=== PATIENT | female | born 1955 | race Caucasian/White ===

== ENCOUNTER 2023-08-18 08:22 | Inpatient (IN) | payer MEDICARE, SELFPAY ==
[2023-08-18] VITALS (16 sets, daily range): BP systolic 111–175; BP diastolic 38–98; PULSE 100–143; RESP 16–28; TEMP 36.2–39.5; O2SAT 92–99
--- NOTE | ~2023-08-18 | US_ITS ---
Duplex Sonography of the bilateral lower extremities: Indication: Swelling Sagittal and transverse B-mode images as well as color-flow imaging were performed on the right and l eft femoral and popliteal veins. B-mode examination was done without and with compression in the tra nsverse plane. There is good visualization of the bilateral common femoral, proximal profunda femora l, superficial femoral, greater saphenous, and popliteal veins. Normal flow was seen on color-flow im aging. Normal compressibility was demonstrated. Visualized calf veins are also patent. Impression: No evidence of deep vein thrombosis involving either lower extremity. Reviewed, dictated and finalized at location M. Impression: No evidence of deep vein thrombosis involving either lower extremit y.
--- NOTE | ~2023-08-18 | XR_ITS ---
EXAMINATION: XR chest 2V DATE: 08/18/2023 09:27 INDICATION: Shortness of breath. Cough. TECHNIQUE: Frontal and lateral views of the chest were obtained. COMPARISON: None. FINDINGS: There is a moderate-sized left pleural effusion. There is mild scarring at the lung apices. There are airspace opacities at left lung base. No pneumothorax. The heart size is normal. There is mild chronic anterior wedging of multiple vertebral bodies. IMPRESSION: 1. Moderate-sized left pleural effusion. 2. Airspace opacities at left lung base, consistent with atelectasis versus pneumonia. Reviewed, dictated and finalized at location A. IMPRESSION: 1. Moderate-sized left pleural effusion. 2. Airspace opacities at left lung base, consistent with atelectasis versus pne umonia.
--- NOTE | ~2023-08-18 | XR_ITS ---
EXAMINATION: XR chest LT decubitus Exam Date/Time: 08/18/2023 18:54 CDT HISTORY: left pleural effusion Comparison: Same date at 9:24 AM. RESULT: Lines, tubes, and devices: None. Lungs and pleura: Segmental left lower lobe consolidation. Cardiomediastinal silhouette: Stable. Other: No acute osseous or upper abdominal finding. IMPRESSION: Segmental left lower lobe consolidation suspicious for pneumonia. No layering effusion detected. Reviewed, dictated and finalized at location K. IMPRESSION: Segmental left lower lobe consolidation suspicious for pneumonia. No layering e ffusion detected.
--- NOTE | ~2023-08-18 | CT_ITS ---
Clinical Indication: Pneumonia, tachycardia CT Scan of the Chest with Contrast: Technique: Contiguous sections were acquired throughout the chest after intravenous administration of 100 cc of Omnipaque 350. Dose reduction technique was used on this scan by utilizing automated expos ure control and iterative reconstruction technique. The dose-length product (DLP) was 369.57 mGy-cm. Findings: There is no evidence of any significant mediastinal, hilar or axillary lymphadenopathy. There is no f illing defect in the pulmonary arterial tree to suggest pulmonary embolus. There is no evidence of ao rtic dissection or aneurysm. Right lung clear. No right pleural effusion. No pericardial effusion. There is extensive left lower lobe pneumonia, somewhat sparing the superior segment. Small left pleur al effusion present. Images through the upper abdomen reveal no abnormalities. Chronic T10 compression fracture present. Impression: Extensive left lower lobar pneumonia. Small left pleural effusion. Chronic T11 compression deformity. Reviewed, dictated and finalized at [facility]. Impression: Extensive left lower lobar pneumonia. Small left pleural effusion. Chronic T11 compression deformity.
--- NOTE | 2023-08-18 08:29 | ECG_ITS ---
Measurements Intervals [place] Rate: 131 P: 61 IA: 116 QRS: 44 QRSD: 102 T: 57 QT: 292 QTc: 431 Interpretive Statements SINUS TACHYCARDIA WITH SHORT IA INTERVAL ABNORMAL RHYTHM ECG NO PREVIOUS ECG AVAILABLE FOR COMPARISON Electronically Signed On 08-18-2023 13:08:58 CDT by Raffi Valerio M.D.
[2023-08-18] MEDS: ACETAMINOPHEN 500 MG TABLET 1000 MG PO (08:43)
[2023-08-18 08:49] LABS: Basophils Absolute Auto 0.1 K/mm3 (0.0-0.1); Basophils Percent Auto 0.7 % (0.2-1.2); Eosinophils Absolute Auto 0.1 K/mm3 (0-0.3); Eosinophils Percent Auto 0.3 % (0-4.4); Hematocrit 39.2 % (37.0-47.0); Hemoglobin 13.3 g/dL (12.0-15.0); Immature Granulocyte Absolute 0.14 K/mm3 (0.00-0.031); Immature Granulocyte Percent A 0.9 % (0-0.5); Lymphocytes Absolute Auto 0.52 K/mm3 (0.9-3.2); Lymphocytes Percent Auto 3.5 % (18.3-44.2); Mean Corpuscular HGB Conc 33.9 g/dl (32-36); Mean Corpuscular Hemoglobin 32.4 pg (26-34); Mean Corpuscular Volume 95.4 fl (80-100); Mean Platelet Volume 10.9 fl (7.4-10.4); Monocytes Absolute Auto 0.3 K/mm3 (0.1-0.6); Monocytes Percent Auto 1.7 % (2.6-8.5); Neutrophils Absolute Auto 13.8 K/mm3 (1.3-6.7); Neutrophils Percent Auto 92.9 % (45.5-73.1); Platelet Count Result 176 k/mm3 (150-375); Red Blood Count 4.11 M/mm3 (4.2-5.4); Red Cell Distribution Width 12.4 % (11.5-14.5); White Blood Count 14.9 K/mm3 (4.5-10.0)
[2023-08-18 08:58] LABS: INR 1.8; Prothrombin Time 22.1 Seconds (11.1-14.7)
[2023-08-18 08:59] LABS: Partial Thromboplastin Time 35.9 Seconds (22.3-36.8)
[2023-08-18 09:02] LABS: Lactic Acid Reflex 1.5 mmol/L (0.7-2.0)
[2023-08-18 09:04] LABS: Alanine Aminotransferase 51 U/L (6-35); Albumin Level 3.6 g/dL (3.5-5.1); Alkaline Phosphatase 67 U/L (38-126); Anion Gap 9 mmol/L (4-12); Aspartate Amino Transferase 49 U/L (14-36); Blood Urea Nitrogen 12 mg/dL (7-17); Calcium 9.6 mg/dL (8.4-10.2); Carbon Dioxide 19 mmol/L (22-30); Chloride 102 mmol/L (98-107); Estimated CRCL calculation 87 ml/min; Estimated Glomerular Filt Rate > 60; Glucose 134 mg/dL (65-110); Potassium 4.1 mmol/L (3.4-5.0); Sodium 130 mmol/L (137-145)
[2023-08-18 09:22] LABS: Appearance Urine Clear (Clear); Bacteria Urine None Seen /hpf; Bilirubin Urine Negative (Negative); Blood Urine 3+ (Negative); Color Urine Dark Yellow (Yellow); Glucose Urine UA Negative (Negative); Ketones Urine 2+ mg/dL (Negative); Leukocyte Esterase Ur Negative LEU/UL (Negative); Need Manual Microscopic Reviewed; Nitrate Urine Negative (Negative); Protein Urine 3+ mg/dL (Negative); Specific Grav Ur 1.022 (1.001-1.035); Squamous Epithelial Cell Urine Occasional /hpf (Few); WBC Urine 0-5 /hpf (0-3)
[2023-08-18 09:23] LABS: Add Urine Microscopic? YES
[2023-08-18 09:24] LABS: Influenza A QL RT-PCR Negative (Negative); Influenza B QL RT-PCR Negative (Negative); RSV RNA, RT-PCR Negative (Negative); SARS-CoV-2 RNA PCR Negative (Negative)
--- NOTE | 2023-08-18 09:50 | ED.SOB ---
HPI - SOB/Dyspnea General Chief Complaint: Shortness of Breath/Dyspnea Stated Complaint: dyspnea Time Seen by Provider: 08/18/23 08:29 Source: patient Mode of arrival: ambulatory Limitations: no limitations History of Present Illness HPI Narrative: 68-year-old with history of hypertension here with a complaint of shortness of breath, fever occasional cough for past 3 days. She denies any nausea, vomiting or abdominal pain. MD elicited complaint: shortness of breath and cough Onset (ago): day(s) (3) Timing: constant Severity: moderate Exacerbating factors: nothing Relieving factors: oxygen Associated symptoms: fever Treatment prior to arrival: none Related Data Home oxygen amount: none Allergies Allergy/AdvReac Type Severity Reaction Status Date / Time No Known Allergies Allergy Verified 08/18/23 08:49 Review of Systems Review of Systems: All systems reviewed & are unremarkable except as noted in HPI and below Constitutional: Constitutional: Reports as per HPI Eyes: Eyes: Reports no additional eye complaints ENT: Reports system reviewed and no additional complaints, except as documented Cardiovascular: Cardiovascular: Reports no additional cardiovascular complaints Respiratory: Respiratory: Reports as per HPI Gastrointestinal: Gastrointestinal: Reports no additional gastrointestinal complaints Musculoskeletal: Musculoskeletal: Reports no additional musculoskeletal complaints Integumentary/Breasts: Skin/Breast: Reports system reviewed and no additional complaints, except as docu Neurologic: Reports system reviewed and no additional complaints, except as documented Exam Narrative: GENERAL: Well-appearing, well-nourished, and in no acute distress. Febrile HEAD: Normocephalic, atraumatic. EYES: PERRLA and EOMI. ENT: Nares clear, no rhinorrhea or epistaxis. Mucous membranes moist. NECK: Supple. CHEST: Clear to auscultation. No respiratory distress. Tachypnea HEART: Tachycardic. No murmur heard. Normal peripheral pulses. ABDOMEN: Soft, nontender, nondistended, normal active bowel sounds. EXTREMITIES: Normal range of motion. No edema. SKIN: Warm, dry, no rash. NEURO: No focal deficits. Alert and oriented x3. PSYCH: Normal mood and affect. Course Course Emergency Course: Patient was febrile upon arrival new given Tylenol, she was also tachypneic with placed on 2 L nasal cannula SpO2 is 95% I would hydrate is variable which is down to 110s to 125. I did inform her about the lab work, EKG and chest x-ray findings were agreeable with admission. She does have left lower lobe pneumonia with effusion. Discussed with the hospitalist accepted the patient Vital Signs Vital signs: Vital Signs Temperature 39.5 C H 08/18/23 08:16 Pulse Rate 134 H 08/18/23 08:16 Respiratory Rate 28 H 08/18/23 08:16 Blood Pressure 175/69 H 08/18/23 08:16 Pulse Oximetry 98 08/18/23 08:16 Oxygen Delivery Room Air 08/18/23 08:16 Temperature 39.5 C H 08/18/23 08:16 Pulse Rate 112 H 08/18/23 09:30 Respiratory Rate 24 H 08/18/23 09:30 Blood Pressure 121/64 08/18/23 09:30 Pulse Oximetry 93 08/18/23 09:30 Oxygen Delivery Room Air 08/18/23 08:26 MDM - SOB/Dyspnea Differential Diagnosis Differential diagnosis: Likely acute exacerbation of chronic obstructive airways disease, congestive heart failure and community acquired pneumonia Medical Records Attestation: I reviewed the patient's medical records. Lab Data Attestation: I reviewed the patient's lab results. 08/18/23 08:40 08/18/23 08:40 Labs: Lab Results 08/18/23 08/18/23 Range/Units 08:40 09:00 WBC 14.9 H (4.5-10.0) K/mm3 RBC 4.11 L (4.2-5.4) M/mm3 Hgb 13.3 (12.0-15.0) g/dL Hct 39.2 (37.0-47.0) % MCV 95.4 (80-100) fl MCH 32.4 (26-34) pg MCHC 33.9 (32-36) g/dl RDW 12.4 (11.5-14.5) % Plt Count 176 (150-375) k/mm3 MPV 10.9 H (7.4-10.4) fl Immature Gran % (A
[2023-08-18 10:16] LABS: CRP 32.4 mg/dL (<1.0)
[2023-08-18] MEDS: DOXYCYCLINE 100 MG/NS 100 ML 100 MG/100 ML BAG IVPB ×2 (10:26→22:08)
[2023-08-18] MEDS: SODIUM CHLORIDE 0.9% IV 1,000 ML 125 ML IV CONT (12:20)
--- NOTE | 2023-08-18 13:43 | ADMGEN ---
This patient, Antoinette Wolf, was admitted to [facility] Surg Room 317-02. Patient/family oriented to hospital policies and general routines including ID bracelet, bed and alarms, visiting hours, pain management, procedures, bathroom and other care routines, personal items, smoking policy, room service/diet, and visiting hours. Information on how to activate the Rapid Response Team has been discussed. Patient/Family are encouraged to report perceived risks to care and to ask questions if they do not understand what they are told or what they should do.
--- NOTE | 2023-08-18 14:19 | PM.IMHP ---
H&P: HPI History of Present Illness Date/Time: 08/18/23 14:50 Chief Complaint: Shortness of breath. Narrative: This is a 68-year-old female with asthma who presented to the emergency department for evaluation of shortness of breath. The patient provides the following history. She lives in [place] but has been in the area for the last couple of weeks visiting friends and family. The last several days she has developed a cough which is occasionally productive of dark phlegm admixed with small amounts of bright red blood. Her appetite has been poor, she has had loose stools, and she has started to become short of breath with exertion. She also reports a subjective fever for which she has been taking Motrin. She denies headache, neck ache, sore throat, chest pain, pleuritic pain, and vomiting. No known sick contacts. In the ED: Temperature was 103.1? on arrival. She has been in a sinus tachycardia though heart rates have improved. SpO2 has been in the mid to upper 90s on room air. Labs were significant for WBC count of 14.9, sodium 130, carbon dioxide 19, BUN 12, creatinine 0.60, lactic acid 1.5, AST 49, ALT 51, CRP 32.4. She tested negative for influenza, RSV, and COVID. Chest x-ray showed moderate size left pleural effusion and airspace opacities of left lung base consistent with atelectasis versus pneumonia. She was started on ceftriaxone and doxycycline and she is being admitted in this setting for further treatment. Review of Systems Review of Systems: 12 systems were reviewed and are negative except for as per HPI. [facility] Past Medical History Medical History Arthritis Asthma Migraine headache Surgical History Surgical History (Updated 08/18/23 @ 21:59 by Renee Suarez PA-C) History of orthopedic surgery Family History Family History (Updated 08/18/23 @ 22:00 by Renee Suarez PA-C) Other Family history non-contributory Social History Social History Social History: Surrogate medical decision maker: Baldev Carlin, friend. Code status: Full code. Smoking status: Never smoker Alcohol intake: current Drinks per week: 7 Substance use: never Substance use type: does not use Do You Feel Safe in your Home?: Yes Lack of Transportation: No Lack of Food: Never True Current Housing: I Have Housing Concerned About Future Housing: No Difficulty Paying Gas/Electric Bills: No Difficulty Paying for Meds: No Currently Unemployed: No Education: Don't Know Difficulty w/ Childcare or Family Care: No Spiritual care concerns: No Meds Home Medications and Allergies Home Medications Medication Instructions Recorded Confirmed Type cyclobenzaprine 10 mg tablet 10 mg PO HS PRN Arthritis 08/18/23 08/18/23 History fluticasone propionate 44 2 puff inhalation BID PRN 08/18/23 08/18/23 History mcg/actuation HFA aerosol inhaler Shortness Of Breath Allergies Allergy/AdvReac Type Severity Reaction Status Date / Time No Known Allergies Allergy Verified 08/18/23 14:24 Vital Signs Vital Signs - 24 hr 08/18/23 08:16 08/18/23 08:26 08/18/23 08:26 Temperature 103.1 F H Pulse Rate 134 H 120 H Respiratory Rate 28 H Blood Pressure 175/69 H Pulse Oximetry 98 93 Oxygen Delivery Room Air Room Air 08/18/23 08:46 08/18/23 09:01 08/18/23 09:30 Temperature Pulse Rate 129 H 143 H 112 H Respiratory Rate 27 H 24 H 24 H Blood Pressure 137/72 137/63 121/64 Pulse Oximetry 94 94 93 Oxygen Delivery 08/18/23 09:58 08/18/23 10:37 08/18/23 10:16 Temperature 99.1 F Pulse Rate 103 H 100 101 H Respiratory Rate 25 H 22 H 22 H Blood Pressure 121/64 120/63 120/63 Pulse Oximetry 95 96 92 Oxygen Delivery 08/18/23 11:52 08/18/23 13:27 08/18/23 14:16 Temperature 97.1 F L Pulse Rate 104 H 102 H Respiratory Rate 22 H 16 Blood Pressure 119/57 L
[2023-08-18] MEDS: ACETAMINOPHEN 325 MG TABLET 650 MG PO ×2 (15:09→23:18)
[2023-08-18 16:32] LABS: Anion Gap 4 mmol/L (4-12); Blood Urea Nitrogen 12 mg/dL (7-17); Calcium 8.6 mg/dL (8.4-10.2); Carbon Dioxide 21 mmol/L (22-30); Chloride 110 mmol/L (98-107); Estimated CRCL calculation 87 ml/min; Estimated Glomerular Filt Rate > 60; Glucose 129 mg/dL (65-110); Potassium 3.4 mmol/L (3.4-5.0); Sodium 135 mmol/L (137-145)
[2023-08-18 19:26] LABS: MRSA (PCR) NOT DETECTED (NOT DETECTE)
[2023-08-19] VITALS (14 sets, daily range): BP systolic 126–170; BP diastolic 58–74; PULSE 90–158; RESP 18–20; TEMP 36.2–37.9; O2SAT 95–100
--- NOTE | 2023-08-19 | ECHO_ITS ---
Patient Info Name: Antoinette Wolf Age: 68 years : 1955 Gender: Female Ht: 68 in Wt: 195 lbs BSA: 2.08 m2 HR: 120 bpm BP: 126 / 64 mmHg Heart Rhythm: Sinus Rhythm, Tachycardia Technical Quality: Fair Exam Date: 08/19/2023 11:24 AM Exam Location: Echo Lab Patient Status: Inpatient Admit Date: 08/18/2023 Staff Ordering Physician: Alfonso Ruiz APRN Anode Builder: Enedina Tran RDCS Attending Provider: Juventino Sanabria MD Referring Physician: Joseph MENDOZA; Exam Type: CA echo doppler color flow Study Info Indications R00.0 - Tachycardia, unspecified Complete two-dimensional, color flow and Doppler transthoracic echocardiogram is performed. Summary 1. Complete two-dimensional, color flow and Doppler transthoracic echocardiogram is performed. 2. Left ventricular chamber dimension is normal. 3. Left ventricular systolic function is normal, estimated at 65-70%. 4. The left ventricular diastolic function is grade I diastolic dysfunction. 5. Right ventricular systolic function is normal. 6. There is mild tricuspid valve regurgitation. Left Ventricle Left ventricular chamber dimension is normal. Left ventricular systolic function is normal, estimated at 65-70%. There is no increased left ventricular wall thickness. The left ventricular diastolic function is grade I diastolic dysfunction. Right Ventricle Right ventricular chamber dimension is normal. Right ventricular systolic function is normal. Left Atria Left atrial chamber dimension is normal. Right Atria Right atrial chamber dimension is normal. Atrial Septum Intact interatrial septum visualized by color flow imaging. Aortic Valve The aortic valve is trileaflet. There is no aortic valve stenosis. There is no aortic valve regurgitation. There is mild aortic valve calcification. Pulmonic Valve The pulmonic valve is not well visualized. Mitral Valve There is trace mitral valve regurgitation. The mitral valve annulus is mildly calcified. Tricuspid Valve There is mild tricuspid valve regurgitation. Pericardium/Pleural There is no pericardial effusion. Inferior Vena Cava Normal inferior vena cava with >50% collapse upon inspiration consistent with normal right atrial pressure, 3 mmHg. Aorta The aortic root size at the sinus of Valsalva is normal. Left Ventricular Outflow Tract Name Value Normal LVOT 2D LVOT Diameter 2.1 cm LVOT Doppler LVOT Peak Gradient 7 mmHg LVOT Mean Gradient 3 mmHg LVOT VTI 22 cm LVOT VTI/AV VTI Ratio 0.8 LVOT Stroke Volume 73 ml LVOT CO 7.6 l/min LVOT CI 3.7 l/min/m2 Pulmonic Valve Name Value Normal RVOT Doppler RVOT Peak Gradient 3 mmHg PV Doppler
[2023-08-19 07:07] LABS: Hematocrit 36.6 % (37.0-47.0); Hemoglobin 12.2 g/dL (12.0-15.0); Mean Corpuscular HGB Conc 33.3 g/dl (32-36); Mean Corpuscular Hemoglobin 32.4 pg (26-34); Mean Corpuscular Volume 97.3 fl (80-100); Mean Platelet Volume 11.3 fl (7.4-10.4); Platelet Count Result 164 k/mm3 (150-375); Red Blood Count 3.76 M/mm3 (4.2-5.4); Red Cell Distribution Width 12.6 % (11.5-14.5); White Blood Count 17.4 K/mm3 (4.5-10.0)
[2023-08-19 07:14] LABS: Anion Gap 5 mmol/L (4-12); Blood Urea Nitrogen 13 mg/dL (7-17); Calcium 9.3 mg/dL (8.4-10.2); Carbon Dioxide 24 mmol/L (22-30); Chloride 106 mmol/L (98-107); Estimated CRCL calculation 88 ml/min; Estimated Glomerular Filt Rate > 60; Glucose 102 mg/dL (65-110); Potassium 3.9 mmol/L (3.4-5.0); Sodium 135 mmol/L (137-145)
[2023-08-19 08:36] LABS: Band Neutrophils Percent 40 % (0-6); Lymphocytes Absolute Manual 1.21 K/mm3 (1.1-4.5); Monocytes Absolute Manual 0.17 K/mm3 (0.1-0.90); Monocytes Percent Manual 1 % (3-9); Neutrophils Percent Manual 52 % (46-73); Platelet Estimate Adequate (Adequate); Schistocytes None Seen; Total Cells Counted 100
--- NOTE | 2023-08-19 09:01 | ECG_ITS ---
Measurements Intervals [place] Rate: 135 P: [place]: 0 QRS: 35 QRSD: 100 T: 41 QT: 300 QTc: 450 Interpretive Statements SINUS TACHYCARDIA WITH PREMATURE ATRIAL COMPLEXES AND PVCS COMPARED TO ECG 08/18/2023 08:24:51 NO SIGNIFICANT CHANGES Electronically Signed On 08-19-2023 14:52:55 CDT by Jasmyne Pérez M.D.
--- NOTE | 2023-08-19 09:47 | PM.IMPN ---
Progress Note: A&P Assessment and Plan (1) Community acquired pneumonia: Qualifiers: Laterality: left Lung location: lower lobe of lung Qualified Code(s): J18.9 - Pneumonia, unspecified organism Code(s): J18.9 - Pneumonia, unspecified organism Status: Acute Assessment and Plan: Patient with tachycardia tachypnea elevated white blood cell count normal lactic acid blood. Procalcitonin 12. Initially patient was started IV ceftriaxone and IV doxycycline. Increased dose ceftriaxone and changed to doxycycline to oral. Received call from RN that patient was very tachycardic in the 160s at times. Telemetry reviewed patient seems to have an underlying sinus tachycardia around 120-130 with paroxysm is a of SVT lasting anywhere from 4-20 beats in which the rate is significantly higher. Escalate IV antibiotic therapy to cefepime. Add IV steroids 50 mg hydrocortisone q.6 hours. CTA to rule out PE and obtain better imaging pneumonia process. Significant consolidative pneumonia left lower lobe. Urine pneumococcal and Legionella antigen pending. (2) Sepsis: Code(s): A41.9 - Sepsis, unspecified organism Status: Acute Assessment and Plan: Patient with tachycardia tachypnea elevated white blood cell count normal lactic acid blood. Procalcitonin 12. Initially patient was started IV ceftriaxone and IV doxycycline. Increased dose ceftriaxone and changed to doxycycline to oral. Received call from RN that patient was very tachycardic in the 160s at times. Telemetry reviewed patient seems to have an underlying sinus tachycardia around 120-130 with paroxysm is a of SVT lasting anywhere from 4-20 beats in which the rate is significantly higher. Escalate IV antibiotic therapy to cefepime. Add IV steroids 50 mg hydrocortisone q.6 hours. CTA to rule out PE and obtain better imaging pneumonia process. Significant consolidative pneumonia left lower lobe. Urine pneumococcal and Legionella antigen pending. (3) Hyponatremia: Code(s): E87.1 - Hypo-osmolality and hyponatremia Status: Acute Assessment and Plan: Sodium 130 on admission elevated 135 on morning labs today. 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 Trend with daily labs at this time. (4) Pleural effusion on left: Code(s): J90 - Pleural effusion, not elsewhere classified Status: Ruled-out Assessment and Plan: 08/18: Repeat imaging shows consolidative pneumonia in left lower lobe rather than pleural effusion as read on initial imaging. (5) Paroxysmal SVT (supraventricular tachycardia): Code(s): I47.10 - Supraventricular tachycardia, unspecified Status: Acute Assessment and Plan: Received call from RN that patient was very tachycardic in the 160s at times. Telemetry reviewed patient seems to have an underlying sinus tachycardia around 120-130 with paroxysm is a of SVT lasting anywhere from 4-20 beats in which the rate is significantly higher. Cardiology consulted. Plan Carried over from previous chart: The patient presented to the emergency department for evaluation of fever, cough, and shortness of breath as detailed in HPI. Labs, imaging, EKG, and all reports were personally reviewed. Her history suggests pneumonia and airspace opacities were noted at the left lung base... Sputum ordered for culture. Check Legionella and pneumococcal antigens as well as mycoplasma IgM. Hyponatremia is likely related to underlying pneumonia. She received a 30 mL/kg normal saline bolus in the ED. Hold on further IV fluids for now as she is tolerating p.o. Time Spent With Patient Time with patient: Greater than 35 minutes Subjective Date/time seen: 08/19/23 09:47 Interval history: Patient reports she started cold symptoms on Friday that progressed to significant fatigue on Friday leading her to sleeping 24 hours a day. Yesterday she came to the emergency department due to shortness of breath.
[2023-08-19] MEDS: cefTRIAXone 2 GM/NS 100 ML 2 GM/100 ML BAG IVPB (10:07)
[2023-08-19] MEDS: ENOXAPARIN 100 MG/ML SYRINGE 90 MG SUB-Q ×2 (10:07→20:28)
[2023-08-19] MEDS: POTASSIUM CHLORIDE 20 MEQ ER TABLET 40 MEQ PO (10:08)
[2023-08-19] MEDS: ACETAMINOPHEN 325 MG TABLET 650 MG PO (10:08)
[2023-08-19] MEDS: DOXYCYCLINE HYCLATE 100 MG TABLET PO ×2 (10:09→20:29)
[2023-08-19 10:14] LABS: Magnesium 2.1 mg/dL (1.6-2.3)
[2023-08-19 10:23] LABS: NT Pro B Type Natriuretic Pept 602 pg/mL (19.9-100)
[2023-08-19 10:53] LABS: Lactic Acid Reflex 1.3 mmol/L (0.7-2.0)
--- NOTE | 2023-08-19 11:23 | PM.CNCAR ---
Assessment and Plan Assessment and plan (1) Tachycardia: Code(s): R00.0 - Tachycardia, unspecified Status: Acute Assessment and Plan: EKG shows sinus tachycardia. Review of telemetry shows sinus tachycardia with intermittent brief SVT. TSH level is normal. Likely precipitated by her pneumonia. Recommend treatment of underlying pneumonia which should improve tachycardia. Will start Toprol 50mg once daily to help with the SVT. Echocardiogram already ordered and pending. (2) Community acquired pneumonia: Qualifiers: Laterality: left Lung location: lower lobe of lung Qualified Code(s): J18.9 - Pneumonia, unspecified organism Code(s): J18.9 - Pneumonia, unspecified organism Status: Acute Assessment and Plan: Management as per primary team. History of Present Illness History of Present Illness Consult date/time: 08/19/23 11:23 Requesting physician: Alfonso Ruiz APRN Consult reason: Other (Tachycardia ) Reason For Visit: Left Lower Lobe Pneumonia Narrative: We are consulted for tachycardia. This is a 68 year old female with asthma who presented to [facility] for shortness of breath. She lives in [place] but has been here for about 2 weeks visiting friends and family She developed a cough which was productive. Has been having fevers at home. In the ED, her temperature was 103.1 F. WBC of 14.9, now up to 17.4. CRP 32.4. CXR concerning for pneumonia. Since admission, she has been tachycardic, for which we are consulted. She denies any chest pain, palpitations. Still reports some shortness of breath. No prior cardiac history. TSH level is normal. Flu, COVID, RSV negative. CTA chest pending. Review of Systems Review of Systems: All systems reviewed & are unremarkable except as noted in HPI and below (HPI) [facility] Past Medical History Medical History Arthritis Asthma Migraine headache Surgical History Surgical History History of orthopedic surgery Family History Family History Other Family history non-contributory Social History Social History Social History: Surrogate medical decision maker: Baldev Hopiknser, friend. Code status: Full code. Smoking status: Never smoker Alcohol intake: current Drinks per week: 7 Substance use: never Substance use type: does not use Do You Feel Safe in your Home?: Yes Lack of Transportation: No Lack of Food: Never True Current Housing: I Have Housing Concerned About Future Housing: No Difficulty Paying Gas/Electric Bills: No Difficulty Paying for Meds: No Currently Unemployed: No Education: Don't Know Difficulty w/ Childcare or Family Care: No Spiritual care concerns: No Meds Home Medications and Allergies Home Medications Medication Instructions Recorded Confirmed Type cyclobenzaprine 10 mg tablet 10 mg PO HS PRN Arthritis 08/18/23 08/18/23 History fluticasone propionate 44 2 puff inhalation BID PRN 08/18/23 08/18/23 History mcg/actuation HFA aerosol inhaler Shortness Of Breath Allergies Allergy/AdvReac Type Severity Reaction Status Date / Time No Known Allergies Allergy Verified 08/18/23 14:24 Vital Signs Vital Signs - 24 hr 08/18/23 11:52 08/18/23 13:27 08/18/23 14:16 Temperature 36.2 C L Pulse Rate 104 H 102 H Respiratory Rate 22 H 16 Blood Pressure 119/57 L 117/57 L Pulse Oximetry 97 99 93 Oxygen Delivery Room Air 08/18/23 16:36 08/18/23 16:00 08/18/23 16:00 Temperature 36.3 C L Pulse Rate 102 H 103 H 102 H Respiratory Rate 16 16 Blood Pressure 125/49 L Pulse Oximetry 93 97 Oxygen Delivery Room Air 08/18/23 21:10 08/18/23 23:51 08/18/23 20:00 Temperature 38.0 C H 37.2 C Pulse Rate 114 H 116 H 107 H Respiratory Rate 20 24 H
[2023-08-19] MEDS: SACCHAROMYCES BOULARDII 250 MG CAPSULE PO ×2 (11:39→17:00)
[2023-08-19] MEDS: METOPROLOL SUCCINATE EXT REL 50 MG TABCR PO (11:39)
[2023-08-19] MEDS: HYDROCORTISONE SODIUM SUCCINATE 100 MG/2 ML VIAL 50 MG IV PUSH (16:59)
[2023-08-19 18:31] LABS: Creatinine Urine 69.7 mg/dL
[2023-08-19 18:34] LABS: Sodium Urine Random 26 meq/L
[2023-08-19] MEDS: CEFEPIME 2 GM/NS 50 ML 2 GM/50 ML BAG IVPB (20:26)
[2023-08-20] VITALS (7 sets, daily range): BP systolic 140–169; BP diastolic 83–99; PULSE 90–104; RESP 18–80; TEMP 36.3–36.6; O2SAT 98–100
[2023-08-20] MEDS: HYDROCORTISONE SODIUM SUCCINATE 100 MG/2 ML VIAL 50 MG IV PUSH ×5 (00:12→23:40)
--- NOTE | 2023-08-20 05:33 | PC.NURSE ---
This RN preceptor has reviewed and agrees with student nurse Carolina Parks assessment and charting for this shift.
[2023-08-20] MEDS: CEFEPIME 2 GM/NS 50 ML 2 GM/50 ML BAG IVPB ×3 (05:40→20:37)
[2023-08-20 07:06] LABS: Hematocrit 35.9 % (37.0-47.0); Hemoglobin 12.3 g/dL (12.0-15.0); Mean Corpuscular HGB Conc 34.3 g/dl (32-36); Mean Corpuscular Hemoglobin 32.5 pg (26-34); Mean Platelet Volume 11.1 fl (7.4-10.4); Platelet Count Result 205 k/mm3 (150-375); Red Blood Count 3.78 M/mm3 (4.2-5.4); Red Cell Distribution Width 12.7 % (11.5-14.5); White Blood Count 23.5 K/mm3 (4.5-10.0)
[2023-08-20 07:30] LABS: Alanine Aminotransferase 59 U/L (6-35); Albumin Level 3.2 g/dL (3.5-5.1); Alkaline Phosphatase 98 U/L (38-126); Anion Gap 8 mmol/L (4-12); Aspartate Amino Transferase 46 U/L (14-36); Bilirubin,Total 0.5 mg/dL (0.2-1.3); Blood Urea Nitrogen 11 mg/dL (7-17); Calcium 9.5 mg/dL (8.4-10.2); Carbon Dioxide 21 mmol/L (22-30); Chloride 108 mmol/L (98-107); Estimated CRCL calculation 102 ml/min; Estimated Glomerular Filt Rate > 60; Glucose 127 mg/dL (65-110); Magnesium 2.1 mg/dL (1.6-2.3); Potassium 3.5 mmol/L (3.4-5.0); Sodium 137 mmol/L (137-145)
[2023-08-20 07:59] LABS: Platelet Estimate Adequate (Adequate)
[2023-08-20 08:00] LABS: Band Neutrophils Percent 15 % (0-6); Lymphocytes Absolute Manual 0.94 K/mm3 (1.1-4.5); Lymphocytes Percent Manual 4 % (18-44); Monocytes Absolute Manual 1.64 K/mm3 (0.1-0.90); Monocytes Percent Manual 7 % (3-9); Neutrophils Absolute Manual 20.91 K/mm3 (1.7-7.2); Neutrophils Percent Manual 74 % (46-73); Total Cells Counted 100
[2023-08-20 08:01] LABS: Schistocytes None Seen
[2023-08-20 08:30] LABS: CRP 34.7 mg/dL (<1.0)
--- NOTE | 2023-08-20 08:46 | PM.IMPN ---
Progress Note: A&P Assessment and Plan (1) Community acquired pneumonia: Qualifiers: Laterality: left Lung location: lower lobe of lung Qualified Code(s): J18.9 - Pneumonia, unspecified organism Code(s): J18.9 - Pneumonia, unspecified organism Status: Acute Assessment and Plan: Patient with tachycardia tachypnea elevated white blood cell count normal lactic acid blood. Procalcitonin 12. Initially patient was started IV ceftriaxone and IV doxycycline. Increased dose ceftriaxone and changed to doxycycline to oral. Received call from RN that patient was very tachycardic in the 160s at times. Telemetry reviewed patient seems to have an underlying sinus tachycardia around 120-130 with paroxysm is a of SVT lasting anywhere from 4-20 beats in which the rate is significantly higher. Escalate IV antibiotic therapy to cefepime. Add IV steroids 50 mg hydrocortisone q.6 hours. CTA to rule out PE and obtain better imaging pneumonia process. Significant consolidative pneumonia left lower lobe. Urine pneumococcal and Legionella antigen pending. 08/19: LLL pneumonia and small left pleural effusion seen on CTA. No PE. Also noted chronic T11 compression deformity. Continue with antibiotics Continue with IV steroids Risk factors for TB and symptoms of weight loss, night sweats, and familial history. Add quantiferon gold. If this is positive, will proceed with AFB x 3 and pulmonology consult. (2) Sepsis: Code(s): A41.9 - Sepsis, unspecified organism Status: Acute Assessment and Plan: See 1 (3) Hyponatremia: Code(s): E87.1 - Hypo-osmolality and hyponatremia Status: Acute Assessment and Plan: Sodium 130 on admission elevated 135 on morning labs today. 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 Trend with daily labs at this time. 08/19: BMP reviewed. Na 137. (4) Paroxysmal SVT (supraventricular tachycardia): Code(s): I47.10 - Supraventricular tachycardia, unspecified Status: Acute Assessment and Plan: Received call from RN that patient was very tachycardic in the 160s at times. Telemetry reviewed patient seems to have an underlying sinus tachycardia around 120-130 with paroxysm is a of SVT lasting anywhere from 4-20 beats in which the rate is significantly higher. Cardiology consulted. 08/19: EKG shows sinus tachycardia TSH normal Likely precipitated by pneumonia Started Toprol 50 mg PO daily to help with SVT. ECHO with normal LVEF, mild TR No further cardiac workup indicated (5) History of short term memory loss: Code(s): Z87.898 - Personal history of other specified conditions Status: Acute Assessment and Plan: Patient is a poor historian given her short term memory loss she lives in a remote area in [place] and has limited resources for physicians Will repeat mini mental during this admission May need to start on medications if she is agreeable. Subjective Date/time seen: 08/20/23 08:46 Interval history: HPI obtained from the chart, This is a 68-year-old female with asthma who presented to the emergency department for evaluation of shortness of breath. The patient provides the following history. She lives in [place] but has been in the area for the last couple of weeks visiting friends and family. The last several days she has developed a cough which is occasionally productive of dark phlegm admixed with small amounts of bright red blood. Her appetite has been poor, she has had loose stools, and she has started to become short of breath with exertion. She also reports a subjective fever for which she has been taking Motrin. She denies headache, neck ache, sore throat, chest pain, pleuritic pain, and vomiting. No known sick contacts. Interval history: 08/19: Patient is seen standing in her room at bedside. She is in no acute distress and does not appear dyspneic. She is able t
[2023-08-20 09:13] LABS: Procalcitonin 7.3 ng/mL
[2023-08-20] MEDS: ENOXAPARIN 100 MG/ML SYRINGE 90 MG SUB-Q ×2 (09:29→20:25)
[2023-08-20] MEDS: DOXYCYCLINE HYCLATE 100 MG TABLET PO ×2 (09:29→20:26)
[2023-08-20] MEDS: METOPROLOL SUCCINATE EXT REL 50 MG TABCR PO (09:29)
[2023-08-20] MEDS: SACCHAROMYCES BOULARDII 250 MG CAPSULE PO ×3 (09:29→17:13)
--- NOTE | 2023-08-20 14:25 | PM.PNCARD ---
Progress Note: A&P Assessment and Plan (1) Paroxysmal SVT (supraventricular tachycardia): Code(s): I47.10 - Supraventricular tachycardia, unspecified Status: Acute Assessment and Plan: EKG shows sinus tachycardia. Review of telemetry shows sinus tachycardia with intermittent brief SVT. TSH level is normal. Likely precipitated by her pneumonia. Recommend treatment of underlying pneumonia which should improve tachycardia. Started Toprol 50mg once daily to help with the SVT, has had improvement with the Metoprolol. Echocardiogram shows normal LVEF, mild TR. Continue with Metoprolol. No additional further cardiac workup or treatment at this point. (2) Sepsis: Code(s): A41.9 - Sepsis, unspecified organism Status: Acute Assessment and Plan: From pneumonia. Management as per primary team. (3) Community acquired pneumonia: Qualifiers: Laterality: left Lung location: lower lobe of lung Qualified Code(s): J18.9 - Pneumonia, unspecified organism Code(s): J18.9 - Pneumonia, unspecified organism Status: Acute Assessment and Plan: Management as per primary team. Plan Cardiology will sign off at this time. Please call us back if needed. Subjective Date/time seen: 08/20/23 14:25 Interval history: Reason for visit: Tachycardia HPI: We are consulted for tachycardia. This is a 68 year old female with asthma who presented to [facility] for shortness of breath. She lives in [place] but has been here for about 2 weeks visiting friends and family She developed a cough which was productive. Has been having fevers at home. In the ED, her temperature was 103.1 F. WBC of 14.9, now up to 17.4. CRP 32.4. CXR concerning for pneumonia. Since admission, she has been tachycardic, for which we are consulted. She denies any chest pain, palpitations. Still reports some shortness of breath. No prior cardiac history. TSH level is normal. Flu, COVID, RSV negative. CTA chest pending. Date of service 08/19: Feeling better today. CTA shows extensive left lower lobar pneumonia, small left pleural effusion. Tele with improvement in heart rates, less episodes of SVT since starting Metoprolol. Review of Systems Review of Systems: All systems reviewed & are unremarkable except as noted in HPI and below (HPI) Exam Const: General: comfortable and no acute distress HENMT: Mouth: Yes moist mucous membranes Eyes: General: appearance normal, both eyes and all related structures Sclera: sclerae normal Neck: Neck: supple Resp: Effort & Inspection: normal respiratory effort Cardio: Rate: regular rate Rhythm: regular rhythm Skin: General skin exam: normal color Neuro: Speech: normal speech Psych: Mental Status: mental status grossly normal Affect: normal affect Objective Data Vital Signs Vital Signs: Vital Signs - 24 hr 08/19/23 16:00 08/19/23 16:00 08/19/23 20:45 Temperature 36.9 C 36.2 C L Pulse Rate 97 90 98 Respiratory Rate 18 20 Blood Pressure 140/73 144/65 H Pulse Oximetry 100 96 Oxygen Delivery 08/19/23 22:00 08/19/23 20:00 08/20/23 00:00 Temperature 36.2 C L 36.4 C Pulse Rate 98 119 H 90 Respiratory Rate 20 18 Blood Pressure 144/65 H 140/83 Pulse Oximetry 96 99 Oxygen Delivery 08/20/23 00:00 08/20/23 04:00 08/20/23 04:00 Temperature 36.4 C Pulse Rate 92 100 104 H Respiratory Rate 20 Blood Pressure 169/95 H Pulse Oximetry 98 Oxygen Delivery 08/20/23 09:29 08/20/23 08:00 08/20/23 13:50 Temperature 36.6 C Pulse Rate 102 H 102 H Respiratory Rate 80 H Blood Pressure 149/96 H Pulse Oximetry 100 Oxygen Delivery Room Air Intake/Output Intake/Output: Intake & Output 08/17/23 08/18/23 08/19/23 08/20/23 23:59 23:59 23:59 23:59 Intake Total 3965.8 1320 2190 Balance 3965.8 1320 2190 Meds/Results Medications: Active Medications Generic Name Dose Route Start Last Admin Trade Name Freq PRN Reason
[2023-08-20] MEDS: guaiFENesin 12 HR 600 MG TABCR 1200 MG PO (17:13)
[2023-08-21] VITALS: BP 147/96; PULSE 103; RESP 20; TEMP 36.4; O2SAT 97
[2023-08-21 04:00] VITALS: BP 114/53; PULSE 92; RESP 20; TEMP 36.7; O2SAT 98
[2023-08-21] MEDS: CEFEPIME 2 GM/NS 50 ML 2 GM/50 ML BAG IVPB (05:34)
[2023-08-21 06:43] LABS: Basophils Absolute Auto 0.2 K/mm3 (0.0-0.1); Basophils Percent Auto 0.9 % (0.2-1.2); Hematocrit 36.4 % (37.0-47.0); Hemoglobin 12.4 g/dL (12.0-15.0); Immature Granulocyte Absolute 0.67 K/mm3 (0.00-0.031); Immature Granulocyte Percent A 4.1 % (0-0.5); Lymphocytes Absolute Auto 1.42 K/mm3 (0.9-3.2); Lymphocytes Percent Auto 8.7 % (18.3-44.2); Mean Corpuscular HGB Conc 34.1 g/dl (32-36); Mean Corpuscular Hemoglobin 32.6 pg (26-34); Mean Corpuscular Volume 95.8 fl (80-100); Mean Platelet Volume 10.9 fl (7.4-10.4); Monocytes Percent Auto 5.9 % (2.6-8.5); Neutrophils Absolute Auto 13.2 K/mm3 (1.3-6.7); Neutrophils Percent Auto 80.4 % (45.5-73.1); Platelet Count Result 239 k/mm3 (150-375); Red Cell Distribution Width 12.8 % (11.5-14.5); White Blood Count 16.4 K/mm3 (4.5-10.0)
[2023-08-21 07:08] LABS: Alanine Aminotransferase 59 U/L (6-35); Albumin Level 3.2 g/dL (3.5-5.1); Alkaline Phosphatase 86 U/L (38-126); Anion Gap 6 mmol/L (4-12); Aspartate Amino Transferase 36 U/L (14-36); Bilirubin,Total 0.4 mg/dL (0.2-1.3); Blood Urea Nitrogen 14 mg/dL (7-17); Calcium 9.8 mg/dL (8.4-10.2); Carbon Dioxide 21 mmol/L (22-30); Chloride 110 mmol/L (98-107); Estimated CRCL calculation 103 ml/min; Estimated Glomerular Filt Rate > 60; Glucose 128 mg/dL (65-110); Magnesium 2.3 mg/dL (1.6-2.3); Potassium 3.9 mmol/L (3.4-5.0); Sodium 137 mmol/L (137-145)
[2023-08-21 07:33] LABS: Procalcitonin 4.3 ng/mL
[2023-08-21 08:00] VITALS: PULSE 92; RESP 20; O2SAT 98
[2023-08-21] MEDS: FLUTICASONE PROP 110 MCG INHALER 12 GM (*SP) 2 PUFF INHALATION ×2 (08:09→21:10)
--- NOTE | 2023-08-21 09:28 | PM.IMPN ---
Progress Note: A&P Assessment and Plan (1) Community acquired pneumonia: Qualifiers: Laterality: left Lung location: lower lobe of lung Qualified Code(s): J18.9 - Pneumonia, unspecified organism Code(s): J18.9 - Pneumonia, unspecified organism Status: Acute Assessment and Plan: Patient with tachycardia tachypnea elevated white blood cell count normal lactic acid blood. Procalcitonin 12. Initially patient was started IV ceftriaxone and IV doxycycline. Increased dose ceftriaxone and changed to doxycycline to oral. Received call from RN that patient was very tachycardic in the 160s at times. Telemetry reviewed patient seems to have an underlying sinus tachycardia around 120-130 with paroxysm is a of SVT lasting anywhere from 4-20 beats in which the rate is significantly higher. Escalate IV antibiotic therapy to cefepime. Add IV steroids 50 mg hydrocortisone q.6 hours. CTA to rule out PE and obtain better imaging pneumonia process. Significant consolidative pneumonia left lower lobe. Urine pneumococcal and Legionella antigen pending. 08/19: LLL pneumonia and small left pleural effusion seen on CTA. No PE. Also noted chronic T11 compression deformity. Continue with antibiotics Continue with IV steroids Risk factors for TB and symptoms of weight loss, night sweats, and familial history. Add quantiferon gold. If this is positive, will proceed with AFB x 3 and pulmonology consult. 08/20: sputum growing moraxella catarrhalis Transition to PO agents Less concerning for TB as she is showing clinical improvement with this regimen and + sputum. (2) Sepsis: Code(s): A41.9 - Sepsis, unspecified organism Status: Acute Assessment and Plan: See 1 (3) Hyponatremia: Code(s): E87.1 - Hypo-osmolality and hyponatremia Status: Acute Assessment and Plan: Sodium 130 on admission elevated 135 on morning labs today. 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 Trend with daily labs at this time. 08/19: BMP reviewed. Na 137. (4) Paroxysmal SVT (supraventricular tachycardia): Code(s): I47.10 - Supraventricular tachycardia, unspecified Status: Acute Assessment and Plan: Received call from RN that patient was very tachycardic in the 160s at times. Telemetry reviewed patient seems to have an underlying sinus tachycardia around 120-130 with paroxysm is a of SVT lasting anywhere from 4-20 beats in which the rate is significantly higher. Cardiology consulted. 08/19: EKG shows sinus tachycardia TSH normal Likely precipitated by pneumonia Started Toprol 50 mg PO daily to help with SVT. ECHO with normal LVEF, mild TR No further cardiac workup indicated 08/20: No issue. D/C tele (5) History of short term memory loss: Code(s): Z87.898 - Personal history of other specified conditions Status: Acute Assessment and Plan: Patient is a poor historian given her short term memory loss she lives in a remote area in [place] and has limited resources for physicians Will repeat mini mental during this admission May need to start on medications if she is agreeable. 08/20: mini mental exam was negative very anxious at baseline, suspect this is more a lack of focus and processing from anxiety. Subjective Date/time seen: 08/21/23 09:28 Interval history: HPI obtained from the chart, This is a 68-year-old female with asthma who presented to the emergency department for evaluation of shortness of breath. The patient provides the following history. She lives in [place] but has been in the area for the last couple of weeks visiting friends and family. The last several days she has developed a cough which is occasionally productive of dark phlegm admixed with small amounts of bright red blood. Her appetite has been poor, she has had loose stools, and she has started to become short of breath with exertio
[2023-08-21] MEDS: AMOXICILLIN/CLAVULANATE K 875-125 MG TAB 1 TABLET PO ×2 (13:04→20:37)
[2023-08-21] MEDS: SACCHAROMYCES BOULARDII 250 MG CAPSULE PO ×2 (13:04→17:54)
[2023-08-21 13:56] VITALS: BP 151/90; PULSE 108; RESP 17; TEMP 36.5; O2SAT 100
[2023-08-21] MEDS: DOXYCYCLINE HYCLATE 100 MG TABLET PO (20:37)
[2023-08-21 21:08] LABS: CRP 19.4 mg/dL (<1.0)
[2023-08-21 21:10] VITALS: PULSE 72
[2023-08-22 03:13] LABS: Legionella pneumophila Ag Ur Not Detected (Not Detected)
[2023-08-22 03:21] LABS: Legionella pneumophila Ag Ur Not Detected (Not Detected)
[2023-08-22 03:57] LABS: Pneumococcal Antigen Urine Not Detected (Not Detected)
[2023-08-22 06:00] VITALS: BP 148/72; PULSE 91; RESP 18; TEMP 36.4; O2SAT 98
[2023-08-22 07:17] VITALS: PULSE 91; RESP 18; O2SAT 98
[2023-08-22] MEDS: FLUTICASONE PROP 110 MCG INHALER 12 GM (*SP) 2 PUFF INHALATION (07:18)
[2023-08-22 07:44] LABS: Basophils Percent Auto 0.1 % (0.2-1.2); Eosinophils Percent Auto 0.2 % (0-4.4); Hematocrit 36.6 % (37.0-47.0); Hemoglobin 12.4 g/dL (12.0-15.0); Immature Granulocyte Absolute 0.72 K/mm3 (0.00-0.031); Immature Granulocyte Percent A 5.4 % (0-0.5); Lymphocytes Absolute Auto 2.29 K/mm3 (0.9-3.2); Mean Corpuscular HGB Conc 33.9 g/dl (32-36); Mean Corpuscular Hemoglobin 31.9 pg (26-34); Mean Corpuscular Volume 94.1 fl (80-100); Mean Platelet Volume 10.6 fl (7.4-10.4); Monocytes Absolute Auto 1.3 K/mm3 (0.1-0.6); Monocytes Percent Auto 9.7 % (2.6-8.5); Neutrophils Absolute Auto 9.1 K/mm3 (1.3-6.7); Neutrophils Percent Auto 67.6 % (45.5-73.1); Platelet Count Result 284 k/mm3 (150-375); Red Blood Count 3.89 M/mm3 (4.2-5.4); Red Cell Distribution Width 12.6 % (11.5-14.5); White Blood Count 13.4 K/mm3 (4.5-10.0)
[2023-08-22 08:14] LABS: Alanine Aminotransferase 70 U/L (6-35); Albumin Level 3.4 g/dL (3.5-5.1); Alkaline Phosphatase 85 U/L (38-126); Aspartate Amino Transferase 53 U/L (14-36); Bilirubin,Total 0.6 mg/dL (0.2-1.3); Blood Urea Nitrogen 15 mg/dL (7-17); CRP 7.5 mg/dL (<1.0); Calcium 9.8 mg/dL (8.4-10.2); Carbon Dioxide 23 mmol/L (22-30); Estimated CRCL calculation 88 ml/min; Estimated Glomerular Filt Rate > 60; Glucose 99 mg/dL (65-110); Magnesium 2.1 mg/dL (1.6-2.3)
[2023-08-22] MEDS: guaiFENesin 12 HR 600 MG TABCR 1200 MG PO (08:20)
[2023-08-22] MEDS: SACCHAROMYCES BOULARDII 250 MG CAPSULE PO ×2 (08:20→12:46)
[2023-08-22 08:21] VITALS: PULSE 130
[2023-08-22] MEDS: AMOXICILLIN/CLAVULANATE K 875-125 MG TAB 1 TABLET PO (08:21)
[2023-08-22] MEDS: METOPROLOL SUCCINATE EXT REL 50 MG TABCR PO (08:21)
[2023-08-22] MEDS: ENOXAPARIN 100 MG/ML SYRINGE 90 MG SUB-Q (08:26)
[2023-08-22] MEDS: DOXYCYCLINE HYCLATE 100 MG TABLET PO (08:26)
[2023-08-22 08:30] LABS: Anion Gap 7 mmol/L (4-12); Chloride 107 mmol/L (98-107); Potassium 3.3 mmol/L (3.4-5.0); Sodium 137 mmol/L (137-145)
[2023-08-22 13:21] LABS: Mycoplasma IgM Antibody Titer 33 U/mL (<770)
--- NOTE | 2023-08-22 13:38 | P.PNIM_ITS ---
Progress Note: A&P Assessment and Plan (1) Community acquired pneumonia: Qualifiers: Laterality: left Lung location: lower lobe of lung Qualified Code(s): J18.9 - Pneumonia, unspecified organism Code(s): J18.9 - Pneumonia, unspecified organism Status: Acute Assessment and Plan: Patient with tachycardia tachypnea elevated white blood cell count normal lactic acid blood. Procalcitonin 12. Initially patient was started IV ceftriaxone and IV doxycycline. Increased dose ceftriaxone and changed to doxycycline to oral. Received call from RN that patient was very tachycardic in the 160s at times. Telemetry reviewed patient seems to have an underlying sinus tachycardia around 120-130 with paroxysm is a of SVT lasting anywhere from 4-20 beats in which the rate is significantly higher. Escalate IV antibiotic therapy to cefepime. Add IV steroids 50 mg hydrocortisone q.6 hours. CTA to rule out PE and obtain better imaging pneumonia process. Significant consolidative pneumonia left lower lobe. Urine pneumococcal and Legionella antigen pending. 08/19: * LLL pneumonia and small left pleural effusion seen on CTA. No PE. Also noted chronic T11 compression deformity. * Continue with antibiotics * Continue with IV steroids * Risk factors for TB and symptoms of weight loss, night sweats, and familial history. Add quantiferon gold. If this is positive, will proceed with AFB x 3 and pulmonology consult. 08/20: * sputum growing moraxella catarrhalis * Transition to PO agents * Less concerning for TB as she is showing clinical improvement with this regimen and + sputum. (2) Sepsis: Code(s): A41.9 - Sepsis, unspecified organism Status: Acute Assessment and Plan: See 1 (3) Hyponatremia: Code(s): E87.1 - Hypo-osmolality and hyponatremia Status: Acute Assessment and Plan: Sodium 130 on admission elevated 135 on morning labs today. 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 Trend with daily labs at this time. 08/19: * BMP reviewed. Na 137. (4) Paroxysmal SVT (supraventricular tachycardia): Code(s): I47.10 - Supraventricular tachycardia, unspecified Status: Acute Assessment and Plan: Received call from RN that patient was very tachycardic in the 160s at times. Telemetry reviewed patient seems to have an underlying sinus tachycardia around 120-130 with paroxysm is a of SVT lasting anywhere from 4-20 beats in which the rate is significantly higher. Cardiology consulted. 08/19: * EKG shows sinus tachycardia * TSH normal * Likely precipitated by pneumonia * Started Toprol 50 mg PO daily to help with SVT. * ECHO with normal LVEF, mild TR * No further cardiac workup indicated 08/20: * No issue. * D/C tele (5) History of short term memory loss: Code(s): Z87.898 - Personal history of other specified conditions Status: Acute Assessment and Plan: Patient is a poor historian given her short term memory loss * she lives in a remote area in [place] and has limited resources for physicians * Will repeat mini mental during this admission * May need to start on medications if she is agreeable. 08/20: * mini mental exam was negative * very anxious at baseline, suspect this is more a lack of focus and processing from anxiety. Subjective Date/time seen: 08/22/23 13:38 Interval history: HPI obtained from the chart, This is a 68-year-old female with asthma who presented to the emergency departm ent for eval
[2023-08-22 13:42] VITALS: BP 150/63; PULSE 95; RESP 18; TEMP 36; O2SAT 98
--- NOTE | 2023-08-22 13:55 | PM.DS ---
DS: Admitting Diagnosis Discharge Date 08/21 Admitting Diagnosis shortness of breath DS: Discharge Diagnosis Discharge Diagnosis Plan (1) Community acquired pneumonia: ?Qualifiers: ?Laterality:?left??Lung location:?lower lobe of lung? Qualified Code(s):?J18.9 - Pneumonia, unspecified organism ?Code(s): J18.9 - Pneumonia, unspecified organism ?Status:?Acute ?Assessment and Plan: Patient with tachycardia tachypnea elevated white blood cell count normal lactic acid blood.? Procalcitonin 12.? Initially patient was started IV ceftriaxone and IV doxycycline.? Increased dose ceftriaxone and changed to doxycycline to oral.? Received call from RN that patient was very tachycardic in the 160s at times.? Telemetry reviewed patient seems to have an underlying sinus tachycardia around 120-130 with paroxysm is a of SVT lasting anywhere from 4-20 beats in which the rate is significantly higher.? Escalate IV antibiotic therapy to cefepime.? Add IV steroids 50 mg hydrocortisone q.6 hours. CTA to rule out PE and obtain better imaging pneumonia process.? Significant consolidative pneumonia left lower lobe.? Urine pneumococcal and Legionella antigen pending. 08/19: LLL pneumonia and small left pleural effusion seen on CTA. No PE. Also noted chronic T11 compression deformity. Continue with antibiotics Continue with IV steroids Risk factors for TB and symptoms of weight loss, night sweats, and familial history. Add quantiferon gold. If this is positive, will proceed with AFB x 3 and pulmonology consult. 08/20: sputum growing moraxella catarrhalis Transition to PO agents Less concerning for TB as she is showing clinical improvement with this regimen and + sputum.(2) Sepsis: ?Code(s): A41.9 - Sepsis, unspecified organism ?Status:?Acute ?Assessment and Plan: See 1 (3) Hyponatremia: ?Code(s): E87.1 - Hypo-osmolality and hyponatremia ?Status:?Acute ?Assessment and Plan: Sodium 130 on admission elevated 135 on morning labs today.? 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 Trend with daily labs at this time. 08/19: BMP reviewed. Na 137.(4) Paroxysmal SVT (supraventricular tachycardia): ?Code(s): I47.10 - Supraventricular tachycardia, unspecified ?Status:?Acute ?Assessment and Plan: Received call from RN that patient was very tachycardic in the 160s at times.? Telemetry reviewed patient seems to have an underlying sinus tachycardia around 120-130 with paroxysm is a of SVT lasting anywhere from 4-20 beats in which the rate is significantly higher. Cardiology consulted. 08/19: EKG shows sinus tachycardia TSH normal Likely precipitated by pneumonia Started Toprol 50 mg PO daily to help with SVT. ECHO with normal LVEF, mild TR No further cardiac workup indicated 08/20: No issue. D/C tele(5) History of short term memory loss: ?Code(s): Z87.898 - Personal history of other specified conditions ?Status:?Acute ?Assessment and Plan: Patient is a poor historian given her short term memory loss she lives in a remote area in [place] and has limited resources for physicians Will repeat mini mental during this admission May need to start on medications if she is agreeable. 08/20: mini mental exam was negative very anxious at baseline, suspect this is more a lack of focus and processing from anxiety. DS: Summary Hospital Course Reason for hospitalization: Community acquired pneumonia Hospital Course: This is a 68-year-old female with asthma who presented to the emergency department for evaluation of shortness of breath. The patient provides the following history. She lives in [place] but has been in the area for the last couple of weeks visiting friends and family. The last several days she has developed a cough which is occasionally productive of dark phlegm admixed with small amounts of bright red blood. Her appetite has been poor, she has had loose stools,
--- NOTE | 2023-08-22 15:05 | PC.NURSE ---
d/c papers signed, denies questions. all belongings are gathered and going with patient. ride is on the way.
[2023-08-22 18:30] LABS: Pneumococcal Antigen Urine Detected (Not Detected)
--- NOTE | 2023-08-23 09:49 | PC.NURSE ---
Received a phone call from Antoinette regarding dizziness and nausea after taking metoprolol. Updated Ines Ross, discharging clinician. Ines gave orders for the patient to stop taking the metoprolol and follow-up with her primary care physician. I called Antoinette and instructed her to stop taking the metoprolol and follow-up with her primary care provider.
[2023-08-24 19:28] LABS: Osmolality, Urine 438 mOsm/kg (50-1200)
[2023-08-27 11:29] LABS: Quantiferon TB Plus, 1T Indeterminate
[2023-08-27 11:30] LABS: NIL 0.02; TB2-NIL 0.01
== END 2023-08-22 15:30 | disposition home or self-care (01) | DRG 871 ==
LOC: ANHED 10:25 → ANH3MEDSUR 11:25
PROVIDERS: Nurse Practitioner; Physician Assistant; Admitting Provider Hospitalist; Emergency Provider Family Medicine; Visit Provider Nurse Practitioner Acute Care
DX: A41.9 Sepsis, unspecified organism (principal); J18.9 Pneumonia, unspecified organism; E87.1 Hypo-osmolality and hyponatremia; J90 Pleural effusion, not elsewhere classified; I47.10 Supraventricular tachycardia, unspecified; I10 Essential (primary) hypertension; J45.909 Unspecified asthma, uncomplicated; M19.90 Unspecified osteoarthritis, unspecified site; Z20.822 Contact with and (suspected) exposure to COVID-19
CPT/HCPCS: 36415; 71045; 71046; 71275; 80048; 80053; 81001; 82570; 83605; 83735; 83880; 83930; 83935; 84145; 84300; 84443; 85025; 85610; 85730; 86140; 86480; 86738; 87040; 87070; 87077; 87185; 87205; 87449; 87637; 87641; 87899; 93005; 93306; 93970; 94640; 96365; 99285; A9270; J0692; J0696; J1650; J1720; J7030; Q9967